=== PATIENT | female | born 1975 | race Caucasian/White ===

== ENCOUNTER 2018-10-02 08:30 | Outpatient (RCR) | payer BC, SELFPAY | END 2018-10-02 13:00 | disposition home or self-care (01) | LOC: PT.CARL 08:30 | PROVIDERS: Visit Provider Orthopaedic Surgery | DX: M25.561 Pain in right knee (principal) | CPT/HCPCS: 97010; 97014; 97016; 97110; 97116; 97140; 97163; 97164; G0283 ==

== ENCOUNTER 2025-05-08 06:56 | Day surgery (SDC) | payer BC, SELFPAY ==
--- NOTE | 2025-05-05 11:59 | EXP.HP ---
History of Present Illness *Admission Date: 05/08/25 *History of present illness: Mrs. Herman is a 49-year-old female who is here for screening colonoscopy. The patient's last colonoscopy was March 2018 (Shayan Naranjo MD [place]). The patient does have Crohn's disease and is on budesonide as needed. The examination is deemed medically necessary for screening colonoscopy. The patient has been seen, interviewed and examined prior to the procedure by both myself and the anesthesia provider. [facility] Disclaimer: The information contained in this section may have been updated after the patient was seen, as this information can be updated by other users. Medical History GREGORY (obstructive sleep apnea) Osteoarthritis Cholecystectomy planned Hyperlipidemia Hypertension Crohn's disease Surgical History S/P reconstruction of ACL of right knee using bone-patellar tendon-bone autograft History of partial hysterectomy History of Family History Mother Diabetes Brother Diabetes Grandfather Family history of stroke Social History (Updated 05/08/25 @ 08:03 by Sheila Marvin CRNA) Smoking Status: Current every day smoker alcohol intake: never substance use type: unknown current occupational status: employed Travel in the last 8 weeks?: None Have you lived/traveled outside [place] in past 30 days?: No Contact w/someone who lives/traveled outside US past 30 days?: No Exposure to someone with infectious disease in past 14 days?: No Do you have a fever (greater than 100.4 F or 38 C)?: No Have you tested positive for COVID-19?: No Exposed to someone with COVID-19 in past 14 days?: No Do you have a sore throat?: No Do you have a cough?: No Do you have any weakness?: No Do you have any diarrhea?: No Are you experiencing any unusual bleeding?: No Do you have any muscle aches/pain?: No Do you have any abdominal pain?: No Are you experiencing loss of taste or smell?: No Review of Systems Review of Systems Review of systems (narrative): Negative *Cardiovascular Comments: Negative *Gastrointestinal Comments: Negative *Genitourinary Comments: Negative *Musculoskeletal Comments: Negative *Neurologic Comments: Negative Meds Home Medications and Allergies Home Medications ?Medication ?Instructions ?Recorded ?Confirmed ?Type budesonide 3 mg 3 mg PO DAILY 04/30/25 05/08/25 History capsule,delayed,extended release meloxicam 7.5 mg tablet 7.5 mg PO DAILY 04/30/25 05/08/25 History rosuvastatin 20 mg tablet 20 mg PO DAILY 04/30/25 05/08/25 History triamterene 37.5 1 cap PO DAILY 04/30/25 05/08/25 History mg-hydrochlorothiazide 25 mg capsule New Prescriptions to Start Prescriptions: Allergies Allergy/AdvReac Type Severity Reaction Status Date / Time No Known Allergies Allergy Verified 05/08/25 07:45 Exam *Routine HEENT Exam Head: Present normocephalic Eye: Present EOMI and PERRL ENT: Present mucous membranes moist *Routine Neck Exam Neck: Present supple *Routine Respiratory Exam Respiratory: Present CTA bilaterally *Routine Cardiovascular Exam Cardiovascular: Present RRR *Routine Abdominal Exam Abdominal: Present soft and normoactive bowel sounds; Absent tenderness *Routine Rectal Exam Rectal:: deferred *Routine Genitalia Exam Genitalia:: deferred *Routine Extremities Exam Extremities: Absent cyanosis, clubbing or edema *Routine Skin Exam Skin: Present warm; Absent rash *Routine Neurological Exam Neurological: Present alert and oriented X3 Assessment and Plan *Assessment and plan (1) Screening for colon cancer: Status: Acute Category: Medical Code(s): Z12.11 - Encounter for screening for malignant neoplasm of colon (2) History of Crohn's disease: Status: Acute Category: Medical Code(s): Z87.19 - Personal history of other diseases of the digestive system Plan A/P: 1. Screening for colon cancer and history of Crohn's disease is the preprocedural diagnosis. The patient will be anesthetized/sedated using MAC sedation. The patient has been seen and examined. Cardiac and lung assessment prior to the examination is stable. Proceed with planned screening colonoscopy.
--- NOTE | 2025-05-08 07:02 | HMH.PROCNOTE ---
[facility] Procedure Note Date: 05/08/25 Time: 08:53 Procedure Note:: Colonoscopy Procedure Report: Colonoscopy Endoscopist: Sachin Hampton II, MD Referring physician: RAO Chen Date of Procedure: May 08, 2025 Equipment: Olympus [id number] adult colonoscope Sedation: MAC sedation Indication: Mrs. Herman is a 49-year-old female who is here for screening colonoscopy. The patient's last colonoscopy was March 2018 (Shayan Naranjo MD [facility]) and she was discovered to have Crohn's disease and placed on budesonide. The patient does state that she only takes this only as needed. She had no polyps on her last examination. She reports no abdominal pain, weight loss, change in her bowel habits or rectal bleeding. She reports no family history of colon cancer. The examination is deemed medically necessary for screening colonoscopy. Procedure: Prior to the procedure, a history and physical exam was performed, and patient's medications and allergies were reviewed. The risks, benefits and alternatives of the sedation and procedure were discussed with the patient. All questions were answered and informed consent was obtained. The patient was brought to the procedure room. Patient identification and proposed procedure were verified by the physician and the nurse. The patient was placed in a left lateral decubitus position and the scope was passed under direct vision. Throughout the procedure, the patient's blood pressure, pulse, and oxygen saturations were monitored continuously. The colonoscopy was accomplished without difficulty. The patient tolerated the procedure well. Findings: On digital rectal examination there was normal rectal tone. There were no external hemorrhoids. The colonoscope was introduced through the anal canal to the rectum and advanced to the cecum. The ileocecal valve and appendiceal orifice were identified. The scope was advanced a short distance into the ileum which appeared grossly normal. The scope was then withdrawn into the colon. The cecum, ascending and transverse colon and mucosa were grossly normal. There were mildly scattered diverticuli throughout the descending and sigmoid colon (LEFT colon). The rectum itself was normal. Upon retroflexion within the rectum there were grade 1 internal hemorrhoids. The preparation was excellent throughout with Lima Preparation Score of 9. The cecal time was 12 minutes. Impression: 1. Mild left-sided diverticulosis 2. Grade 1 internal hemorrhoids Plan: The patient will not require screening/surveillance colonoscopy again for 10 years by ACS guidelines. I would encourage psyllium bulking fiber supplementation on a long-term daily maintenance basis. The patient does not have any Crohn's disease activity.
[2025-05-08 07:43] VITALS: BMI 37.3
[2025-05-08 07:47] VITALS: BP 126/83; PULSE 89; RESP 18; TEMP 36.4; O2SAT 96
[2025-05-08] MEDS: LACTATED RINGERS 1000ML 1,000 ML 50 ML IV (07:52)
--- NOTE | 2025-05-08 08:02 | EXP.ANES.CKL ---
[facility] Disclaimer: The information contained in this section may have been updated after the patient was seen, as this information can be updated by other users. Medical History GREGORY (obstructive sleep apnea) Osteoarthritis Cholecystectomy planned Hyperlipidemia Hypertension Crohn's disease Surgical History S/P reconstruction of ACL of right knee using bone-patellar tendon-bone autograft History of partial hysterectomy History of Family History Mother Diabetes Brother Diabetes Grandfather Family history of stroke Social History Smoking Status: Current every day smoker alcohol intake: never substance use type: unknown current occupational status: employed Travel in the last 8 weeks?: None [facility] Anesthesia Checklist Patient Identification Patient Identification: Arm Band and Verbal (Name & ) Structural Data Admitted From: Home Planned Operative Procedure/s: colonscopy Consent for Planned Operative Procedure(s) Verified: Yes Verified Documents: Surgical Consent and History and Physical NPO Status Verified Time NPO: 00:00 Additional verifications Anesthesia Reactions: No Previous Colonoscopy: Yes Airway Assessment Mallampati Score:: Class II Dentition: Good Dentition Neurological Assessment Level of Consciousness: Awake, Alert and Appropriate Hx Seizures: No Anesthesia Plan Anesthesia Risk discussed: Yes Anesthesia Plan: Verified ASA Class: II Anesthesia Type: MAC
[2025-05-08 08:55] VITALS: BP 101/62; PULSE 75; RESP 16; TEMP 36.1; O2SAT 94
[2025-05-08 09:05] VITALS: BP 92/63; PULSE 68; RESP 15; O2SAT 100
[2025-05-08 09:15] VITALS: BP 107/71; PULSE 74; RESP 17; O2SAT 98
[2025-05-08 09:25] VITALS: BP 100/67; PULSE 77; RESP 17; O2SAT 98
== END 2025-05-08 09:48 | disposition home or self-care (01) ==
PROVIDERS: PCP Nurse Practitioner Family; Visit Provider Internal Medicine Gastroenterology
PROC: 0DJD8ZZ Inspection of Lower Intestinal Tract, Via Natural or Artificial Opening Endoscopic (ICD-10-PCS; CPT 45378; principal; 2025-05-08 08:30)
DX: Z12.11 Encounter for screening for malignant neoplasm of colon (principal); K57.30 Diverticulosis of large intestine without perforation or abscess without bleeding; K64.0 First degree hemorrhoids; K50.90 Crohn's disease, unspecified, without complications; E78.5 Hyperlipidemia, unspecified; I10 Essential (primary) hypertension; G47.33 Obstructive sleep apnea (adult) (pediatric); M19.90 Unspecified osteoarthritis, unspecified site; F17.200 Nicotine dependence, unspecified, uncomplicated; Z79.899 Other long term (current) drug therapy
CPT/HCPCS: 45378; J2003; J2704; J7120